=== PATIENT | male | born 2000 | race Caucasian/White ===

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

== ENCOUNTER 2021-11-29 21:26 | Emergency (ER) | payer OTHER ==
[~2021-11-29] VITALS: Ht 185 cm; Wt 136.0 kg
[2021-11-29] MEDS ORDERED: KETOROLAC 30 MG/ML VIAL IVP STA (22:55)
[2021-11-29] MEDS ORDERED: PIPERACILLIN SODIUM/TAZOBACTAM 4.5 GM in NS (IVPB) 100 ML IV ONE (23:00)
[2021-11-29 23:03] LABS: BASOPHILS % (AUTO) 0 % (0-10); EOSINOPHILS # (AUTO) 0.2 10^3/uL (0.0-0.3); EOSINOPHILS % (AUTO) 2 % (0-10); HEMATOCRIT 47 % (40-54); HEMOGLOBIN 16.3 g/dL (13.3-17.7); LYMPHOCYTES # (AUTO) 2.6 10^3/uL (1.0-4.0); LYMPHOCYTES % (AUTO) 22 % (12-44); MEAN CORPUSCULAR HEMOGLOBIN 28 pg (25-34); MEAN CORPUSCULAR HGB CONC 35 g/dL (32-36); MEAN CORPUSCULAR VOLUME 82 fL (80-99); MEAN PLATELET VOLUME 11.1 fL (9.0-12.2); MONOCYTES % (AUTO) 8 % (0-12); NEUTROPHILS # (AUTO) 8.1 10^3/uL (1.8-7.8); NEUTROPHILS % (AUTO) 68 % (42-75); PLATELET COUNT 262 10^3/uL (130-400); WHITE BLOOD COUNT 11.9 10^3/uL (4.3-11.0)
[2021-11-29] MEDS: VANCOMYCIN INJECTION 1,000 MG in NS (IVPB) 250 ML IV SCH (23:07)
[2021-11-29 23:09] LABS: ALBUMIN 4.6 GM/DL (3.2-4.5)
[2021-11-29 23:10] LABS: CHLORIDE 101 MMOL/L (98-107); POTASSIUM 4.2 MMOL/L (3.6-5.0); SODIUM 138 MMOL/L (135-145)
[2021-11-29 23:11] LABS: CALCIUM 9.8 MG/DL (8.5-10.1)
[2021-11-29 23:12] LABS: GLUCOSE 103 MG/DL (70-105); TOTAL PROTEIN 8.4 GM/DL (6.4-8.2)
[2021-11-29 23:13] LABS: CARBON DIOXIDE 23 MMOL/L (21-32)
[2021-11-29 23:14] LABS: BILIRUBIN,TOTAL 1.1 MG/DL (0.1-1.0)
[2021-11-29 23:15] LABS: ALKALINE PHOSPHATASE 77 U/L (40-136)
[2021-11-29 23:16] LABS: CREATININE SERUM 0.85 MG/DL (0.60-1.30); GFR ESTIMATED 126
[2021-11-29 23:17] LABS: BUN/CREATININE RATIO 11
[2021-11-29 23:18] LABS: ALANINE AMINOTRANSFERASE 52 U/L (0-55)
[2021-11-29 23:19] LABS: ERYTHROCYTE SEDIMENTATION RATE 22 MM/HR (0-15)
[2021-11-30] MEDS: VANCOMYCIN INJECTION 1,000 MG in NS (IVPB) 250 ML IV SCH ×2
[2021-11-30] MEDS ORDERED: PIPERACILLIN/TAZO 4.5 GM VIAL (ZOSYN) IV ONE (01:41)
[2021-11-30] MEDS ORDERED: NS (IVPB) 100 ML ONE (01:42)
[2021-11-30] MEDS ORDERED: RX-TRIMETH/SULFA. 160-800 MG (BACTRIM DS) TAB PPK#2 PO STA (01:54)
[2021-11-30] MEDS ORDERED: RX-DOXYCYCLINE 100 MG (VIBRAMYCIN) TAB PPK#2 PO STA (01:54)
[2021-11-30] MEDS ORDERED: RX-MUPIROCIN (BACTROBAN) 2% OINT 22 GM TUBE TOP STA (01:54)
[2021-11-30] MEDS ORDERED: SULF1TAB38 PO (01:57)
[2021-11-30] MEDS ORDERED: DOXY100T2 PO (01:57)
[2021-11-30] MEDS ORDERED: TRAM-42 PO (01:57)
--- NOTE | 2021-11-30 01:58 | ED Lower Extremity ---
General Chief Complaint: Skin/Wound Problems Stated Complaint: L KNEE SWELLING Nursing Triage Note: [place], STATES TODAY NOTICED OPEN WOUND ON LEFT KNEE. STATES INJURY HAPPENED 2 WEEKS AGO IN [facility] THOUGHT THE WOUND WAS HEALED. Source: patient Allergies and Home Medications Allergies Coded Allergies: No Known Drug Allergies (Unverified Allergy, Mild, 11/28/08) Past Pbwuqvh-[id number]-[id number] Hx Patient Social History Tobacco Use?: No Use of E-Cig and/or Vaping dev: No Substance use?: No Alcohol Use?: No Pt feels they are or have been: No Immunizations Up To Date Influenza Vaccine Up-to-Date: Yes; Up-to-Date First/Initial COVID19 Vaccinat: SAHIL Second COVID19 Vaccination Mejia: SAHIL Past Medical History Reproductive Disorders: No Physical Exam Vital Signs Vital Signs - First Documented 11/29/21 21:58 Temp 37.0 Pulse 89 Resp 20 B/P (MAP) 126/99 (108) Pulse Ox 98 O2 Delivery Room Air Capillary Refill : Less Than 3 Seconds Height, Weight, BMI Height: '" Weight: lbs. oz. kg; 39.00 BMI Method: Progress/Results/Core Measures Results/Orders Lab Results Laboratory Tests Test 11/29/21 21:58 Range/Units White Blood Count 11.9 H 4.3-11.0 10^3/uL Red Blood Count 5.75 H 4.30-5.52 10^6/uL Hemoglobin 16.3 13.3-17.7 g/dL Hematocrit 47 40-54 % Mean Corpuscular Volume 82 80-99 fL Mean Corpuscular Hemoglobin 28 25-34 pg Mean Corpuscular Hemoglobin Concent 35 32-36 g/dL Red Cell Distribution Width 12.6 10.0-14.5 % Platelet Count 262 130-400 10^3/uL Mean Platelet Volume 11.1 9.0-12.2 fL Immature Granulocyte % (Auto) 0 % Neutrophils (%) (Auto) 68 42-75 % Lymphocytes (%) (Auto) 22 12-44 % Monocytes (%) (Auto) 8 0-12 % Eosinophils (%) (Auto) 2 0-10 % Basophils (%) (Auto) 0 0-10 % Neutrophils # (Auto) 8.1 H 1.8-7.8 10^3/uL Lymphocytes # (Auto) 2.6 1.0-4.0 10^3/uL Monocytes # (Auto) 1.0 0.0-1.0 10^3/uL Eosinophils # (Auto) 0.2 0.0-0.3 10^3/uL Basophils # (Auto) 0.0 0.0-0.1 10^3/uL Immature Granulocyte # (Auto) 0.0 0.0-0.1 10^3/uL Erythrocyte Sedimentation Rate 22 H 0-15 MM/HR Sodium Level 138 135-145 MMOL/L Potassium Level 4.2 3.6-5.0 MMOL/L Chloride Level 101 98-107 MMOL/L Carbon Dioxide Level 23 21-32 MMOL/L Anion Gap 14 5-14 MMOL/L Blood Urea Nitrogen 9 7-18 MG/DL Creatinine 0.85 0.60-1.30 MG/DL Estimat Glomerular Filtration Rate 126 BUN/Creatinine Ratio 11 Glucose Level 103 70-105 MG/DL Lactic Acid Level 1.33 0.50-2.00 MMOL/L Calcium Level 9.8 8.5-10.1 MG/DL Corrected Calcium 8.5-10.1 MG/DL Total Bilirubin 1.1 H 0.1-1.0 MG/DL Aspartate Amino Transf (AST/SGOT) 39 H 5-34 U/L Alanine Aminotransferase (ALT/SGPT) 52 0-55 U/L Alkaline Phosphatase 77 40-136 U/L C-Reactive Protein High Sensitivity 4.42 H 0.00-0.50 MG/DL Total Protein 8.4 H 6.4-8.2 GM/DL Albumin 4.6 H 3.2-4.5 GM/DL Procalcitonin 0.05 <0.10 NG/ML My Orders Orders - ORI PEPE DO Ed Iv/Invasive Line Start (11/29/21 21:51) Cbc With Automated Diff (11/29/21 21:51) Comprehensive Metabolic Panel (11/29/21 21:51) Hs C Reactive Protein (11/29/21 21:51) Lactic Acid Analyzer (11/29/21 21:51) Procalcitonin (Pct) (11/29/21 21:51) Erythrocyte Sedimentation Rate (11/29/21 21:51) Knee, Left, 3 Views (11/29/21 22:40) Ed Iv/Invasive Line Start (11/29/21 22:40) Blood Culture (11/29/21 22:40) Wound Culture (11/29/21 22:55) Ketorolac Injection (Toradol Injection) (11/29/21 22:55) Piperacillin Sodium/Tazobactam (Zosyn Vi (11/29/21 23:00) Vancomycin Injection (Vancomycin Injecti (11/29/21 23:00) Ed Iv/Invasive Line Start (11/29/21 22:55) Ct Extremity Lower Left Wo (11/29/21 22:55) Piperacillin Sodium/Tazobactam (Zosyn Vi (11/30/21 01:41) Ns (Ivpb) (Sodium Chloride 0.9% Ivpb Bag (11/30/21 01:42) Medications Given in ED Current Medications Medications Dose Ordered Sig/Jose Route Start Time Stop Time Status Last Admin Dose Admin Piperacillin Sod/ Tazobactam Sod 4.5 gm/Sodium Chloride 100 ml @ 200 mls/hr ONCE ONCE IV 11/29/21 23:00 11/29/21 23:29 DC 11/30/21 01:50 200 MLS/HR Vital Signs/I&O 11/29/21 21:58 Temp 37.0 Pulse 89 Resp 20 B/P (MAP) 126/99 (108) Pulse Ox 98 O2 Delivery Room Air Blood Pressure Mean: 108 Departure Impression Primary Impression: CELLULITIS AND BURSITIS OF LEFT KNEE Disposition: 01 HOME, SELF-CARE Condition: Stable Departure-Patient Inst. Decision time for Depature: 01:55 Referrals: PHILLIP LEAHY MD (PCP/Family) Primary Care Physician BRONSON CONDE MD Patient Instructions: Cellulitis (Skin Infection), Adult (DC), Wound Care (DC) Add. Discharge Instructions: CLEAN WOUND TWICE A DAY WITH ANTIBACTERIAL SOAP AND WATER AND APPLY ANTIBIOTIC OINTMENT AND FRESH DRESSING TWICE A DAY TYLENOL AND MOTRIN NEEDED FOR PAIN OR FEVER FOLLOW UP WITH YOUR FAMILY DR OR WITH DR. CONDE IN 2-3 DAYS FOR FURTHER CARE--CALL IN THE MORNING TO SCHEDULE APPOINTMENT All discharge instructions reviewed with patient and/or family. Voiced understanding. Scripts Tramadol HCl (Ultram) 50 Mg Tablet 50 MG PO Q4H for Pain, #20 TAB Prov: ORI PEPE DO 11/30/21 Doxycycline Hyclate (Doxycycline Hyclate) 100 Mg Tablet 100 MG PO BID, #20 TAB 0 Refills Prov: ORI PEPE DO 11/30/21 Sulfamethoxazole/Trimethoprim (Bactrim Ds Tablet) 1 Each Tablet 1 EACH PO BID, #20 TAB Prov: ORI PEPE DO 11/30/21 ORI PEPE DO Nov 30, 2021 01:58
[2021-11-30 02:30] VITALS: BP 126/99
--- NOTE | 2021-11-30 07:33 | Diagnostic Imaging Report ---
Indication: Left knee pain AP, oblique and lateral views of the left knee are obtained. FINDINGS: No acute fracture or dislocation is identified. No abnormal lytic or sclerotic focus is seen, and there is no radiopaque foreign body. IMPRESSION: No acute abnormality. Dictated by: Dictated on workstation # [id number]
--- NOTE | 2021-11-30 07:41 | Diagnostic Imaging Report ---
PROCEDURE: CT left lower extremity without contrast. TECHNIQUE: Multiple contiguous axial images were obtained through the left lower extremity without the use of intravenous contrast. Sagittal and coronal reformations were then performed. Auto Exposure Controls were utilized during the CT exam to meet ALARA standards for radiation dose reduction. INDICATION: Swelling, pain and redness. FINDINGS: Some edema and prepatellar swelling this may reflect prepatellar bursitis. No intracapsular effusion. No loose body. No bony destructive process. No fracture. There is some subcutaneous edema anteriorly about the knee. No solid or cystic mass within the popliteal fossa. IMPRESSION: Subcutaneous edema and prepatellar swelling. No loose body, joint effusion or acute bony pathology. I agree with preliminary. Dictated by: Dictated on workstation # [id number]
== END 2021-11-30 02:26 | disposition home or self-care (01) ==
LOC: EDUNIT# 21:26 → ER 21:27
DX: L03.116 Cellulitis of left lower limb (principal); M70.52 Other bursitis of knee, left knee
CPT/HCPCS: 36415; 73562; 73700; 80053; 83605; 84145; 85025; 85652; 86141; 87040; 87070; 87077; 87205